=== PATIENT | male | born 1945 | race Caucasian/White ===

== ENCOUNTER → 2020-11-18 | Outpatient (CLI) | payer MEDICARE, BC ==
--- NOTE | 2020-11-18 15:47 | RAD ---
US RENAL BILAT History: Decreased renal function. Comparison: None available. Technique: Sonographic examination of the kidneys and bladder. Findings: Right kidney: 12.7 cm length. Moderate right hydronephrosis. Left kidney: 12.4 cm length. Moderate left hydronephrosis Bladder: No distal ureterectasis. No focal wall abnormality. Prevoid volume 1818 ml. Postvoid volume 1656 ml. Aorta/IVC: Proximal and mid aorta are obscured. Normal distal aorta diameter, 1.9 cm. Other: No ascites. Impression: 1. Enlarged bladder volume, 1.6 liters post void, with severe bilateral hydronephrosis concerning fo r bladder outlet obstruction. Recommend catheter decompression. Findings discussed with Dr. Crockett at 11/18/2020 3:44 PM. FOR INTERNAL CODING PURPOSES RESULT CODE: (C) Electronically signed by: Justen Olmos MD (11/18/2020 3:44 PM) [id number]
== END ==
LOC: US 14:32
PROVIDERS: ATTEND Family Medicine
DX: N28.9 Disorder of kidney and ureter, unspecified (principal); N13.39 Other hydronephrosis
CPT/HCPCS: 76770